=== PATIENT | female | born 1980 | race African-American/Black ===

== ENCOUNTER 2021-05-21 10:00 | Emergency (ER) | payer SELFPAY ==
[~2021-05-21] VITALS: Ht 172.7 cm; Wt 81.6 kg
[2021-05-21] MEDS ORDERED: PIPERACILLIN/TAZOBACTAM 3.375 GM in SODIUM CHLORIDE 0.9% 50ML 50 ML IV STA (10:03)
[2021-05-21] MEDS ORDERED: DIPHENHYDRAMINE HCL INJ 50 MG/ML VIAL IV STA (10:04)
[2021-05-21] MEDS ORDERED: METHYLPREDNISOLONE SOD SUCC 125 MG/2ML VIAL IV STA (10:04)
[2021-05-21] MEDS ORDERED: FAMOTIDINE 20 MG/2 ML VIAL IV STA (10:05)
[2021-05-21 10:33] LABS: BASOPHILS % 0.2 % (0.0-1.0); EOSINOPHILS # (AUTO) 0.4 (0.0-0.4); HEMATOCRIT 41.5 % (34.2-44.1); LYMPHOCYTES # (AUTO) 1.5 (1.0-3.2); LYMPHOCYTES % 23.5 % (18.0-39.1); MEAN CORPUSCULAR HEMOGLOBIN 29.8 pg (28-32); MEAN CORPUSCULAR HGB CONC 31.3 g/dL (31-35); MEAN CORPUSCULAR VOLUME 95.2 fL (81-99); MONOCYTES # (AUTO) 0.7 (0.2-0.8); MONOCYTES % 11.6 % (4.4-11.3); NEUTROPHILS # (AUTO) 3.7 (2.1-6.9); NEUTROPHILS % 58.2 % (38.7-80.0); PLATELET COUNT 272 x10e3/uL (140-360); RED BLOOD COUNT 4.36 x10e6/uL (3.6-5.1); RED CELL DISTRIBUTION WIDTH 15.6 % (11.7-14.4)
[2021-05-21 10:53] LABS: ALBUMIN 3.4 g/dL (3.5-5.0); ALBUMIN/GLOBULIN RATIO 0.9 (0.8-2.0); ANION GAP 13.1 mmol/L (8-16); CALCIUM 9.1 mg/dL (8.4-10.2); CREATININE, SERUM 0.81 mg/dL (0.57-1.11); POTASSIUM 4.1 mmol/L (3.5-5.1)
[2021-05-21] MEDS ORDERED: EPINEPHRINE HCL 1:1000 1ML 1 MG/ML AMP INJ STA (11:52)
[2021-05-21] MEDS ORDERED: BENADRYL25 M1 PO (12:38)
[2021-05-21] MEDS ORDERED: PREDNISONE20 MG PO (12:38)
[2021-05-21] MEDS ORDERED: CEPHALEXIN500 MG PO (12:38)
[2021-05-21] MEDS ORDERED: ACETAMINOPHEN 325 MG TAB PO STA (12:51)
[2021-05-21] MEDS ORDERED: IOPAMIDOL 370 MG/ML 200 ML INFUS..BTL INJ ONE (14:27)
[2021-05-21] MEDS ORDERED: SODIUM CHLORIDE 0.9% 50ML 50 ML ONE (14:27)
== END 2021-05-21 13:10 | disposition home or self-care (01) ==
LOC: ER 10:05
DX: T78.3XXA Angioneurotic edema, initial encounter (principal); L29.9 Pruritus, unspecified; T49.4X5A Adverse effect of keratolytics, keratoplastics, and other hair treatment drugs and preparations, initial encounter
CPT/HCPCS: 36415; 70487; 80053; 84702; 85025; 99284; J0171; J1200; J2543; J2930; Q9967